=== PATIENT | female | born 1990 | race Caucasian/White ===

== ENCOUNTER → 2017-05-18 | Outpatient (CLI) | payer OTHER ==
[~2017-05-18] MED LIST: AMITRIPTYLINE10 MG PO; AMOXICILLIN500 MG PO; ANAPROX DS550 MG PO; ATARAX25 MG PO; ATOXIMETIN-B1 CAP PO; AUGMENTIN 875 M1 TAB PO; BACTRIM DS 8001 TA1 PO; CIPROFLOXACIN500 MG PO; CLARITIN10 MG PO; CLINDAMYCIN HC300 MG PO; DIFLUCAN150 MG PO; DONNATAL1 TAB PO; DOXYCYCLINE MO100 MG PO; FLAGYL500 MG PO; FLONASE 0.05% 121 EA NAS; HURRICAINE MM; HYDROCODONE BIT1 T11 PO; LOMOTIL 0.025 M1 TA1 PO; MEDROL DOSEPAK4 MG PO; METHERGINE0.2 MG PO; MOBIC15 MG PO; MOTRIN600 MG PO; MOTRIN800 MG PO; NAPROSYN500 MG PO; NKHM; PEN-VK500 MG PO; PERCOCET 325 MG1 TA2 PO; PERCOCET 325 MG1 TA3 PO; PHENERGAN W/ DE30 ML PO; PREDNICOT10 MG PO; PREDNICOT20 MG PO; PREDNISONE20 MG PO; PRENATAL1 TA1 PO; PRENATAL1 TA5 PO; PYRIDIUM200 MG PO; Percocet 325 MG1 TAB PO; REMERON15 M1 PO; ROBITUSSIN-AC 160 ML PO; SEPTRA DS 800 M1 TAB PO; TESSALON PERLE200 MG PO; TRAMADOL HCL50 MG PO; TRAMADOL50 MG PO; ULTRAM50 MG PO; VICODIN 5/500 505 MG PO; ZOFRAN ODT4 MG SL; ZOLOFT50 MG PO; Zofran4 MG PO; [UNRECOGNIZED DRUG - REMARK]
== END | disposition home or self-care (01) ==
LOC: ORTHO 01:27
DX: M25.511 Pain in right shoulder (principal)

== ENCOUNTER 2017-06-01 18:11 | Emergency (ER) | payer OTHER ==
[~2017-06-01] VITALS: Ht 170.1 cm; Wt 59.0 kg
[2017-06-01 18:35] VITALS: BP 110/80
[2017-06-01] MEDS ORDERED: CLARITIN10 MG PO (18:47)
[2017-06-01] MEDS ORDERED: ALLERGY RELIE15.8 ML NAS (18:47)
== END 2017-06-01 18:55 | disposition home or self-care (01) ==
LOC: ED 18:11
DX: J30.2 Other seasonal allergic rhinitis (principal); Z79.899 Other long term (current) drug therapy

== ENCOUNTER 2017-06-04 19:37 | Emergency (ER) | payer OTHER ==
[~2017-06-04] VITALS: Ht 172.7 cm; Wt 63.5 kg
[~2017-06-04 19:37] MED LIST changes: +ALLERGY RELIE15.8 ML NAS
[2017-06-04 19:42] VITALS: BP 117/44
[2017-06-04] MEDS ORDERED: ZOFRAN ODT4 MG SL (20:06)
== END 2017-06-04 20:10 | disposition home or self-care (01) ==
LOC: ED 19:37
DX: K52.9 Noninfective gastroenteritis and colitis, unspecified (principal); Z90.49 Acquired absence of other specified parts of digestive tract; Z79.899 Other long term (current) drug therapy

== ENCOUNTER 2017-08-03 10:30 | Emergency (ER) | payer OTHER ==
[~2017-08-03] VITALS: Ht 170.1 cm; Wt 61.2 kg
[2017-08-03 10:50] VITALS: BP 118/74
[2017-08-03] MEDS ORDERED: PREDNISONE10 MG PO (11:36)
[2017-08-03] MEDS ORDERED: FLONASE ALLERG9.9 ML NAS (11:36)
[2017-08-03] MEDS ORDERED: ROBITUSSIN DM 105 ML PO (11:36)
== END 2017-08-03 12:01 | disposition home or self-care (01) ==
LOC: ED 10:30
DX: J01.90 Acute sinusitis, unspecified (principal); Z79.899 Other long term (current) drug therapy

== ENCOUNTER → 2017-09-28 | Outpatient (CLI) | payer OTHER ==
[~2017-09-28] MED LIST changes: +FLONASE ALLERG9.9 ML NAS; +PREDNISONE10 MG PO; +ROBITUSSIN DM 105 ML PO
== END | disposition home or self-care (01) ==
LOC: LAB 08:13
DX: Z34.83 Encounter for supervision of other normal pregnancy, third trimester (principal); Z3A.28 28 weeks gestation of pregnancy

== ENCOUNTER 2017-12-01 18:02 | Emergency (ER) | payer OTHER ==
[~2017-12-01] VITALS: Ht 170.1 cm; Wt 79.4 kg
[2017-12-01 18:06] VITALS: BP 118/65
== END 2017-12-01 19:05 | disposition home or self-care (01) ==
LOC: ED 18:02
DX: O98.513 Other viral diseases complicating pregnancy, third trimester (principal); R05 Cough; R09.81 Nasal congestion; Z3A.38 38 weeks gestation of pregnancy; Z79.899 Other long term (current) drug therapy; Z90.49 Acquired absence of other specified parts of digestive tract

== ENCOUNTER 2017-12-30 17:39 | Emergency (ER) | payer OTHER ==
[~2017-12-30] VITALS: Ht 170.1 cm; Wt 72.6 kg
[2017-12-30 17:42] VITALS: BP 138/80
[2017-12-30] MEDS ORDERED: PENICILLIN-VK500 MG PO (17:44)
== END 2017-12-30 18:30 | disposition home or self-care (01) ==
LOC: ED 17:39
DX: O90.89 Other complications of the puerperium, not elsewhere classified (principal); K08.89 Other specified disorders of teeth and supporting structures; Z79.899 Other long term (current) drug therapy

== ENCOUNTER 2018-04-30 13:51 | Emergency (ER) | payer OTHER ==
[~2018-04-30] VITALS: Ht 170.1 cm; Wt 68.0 kg
[~2018-04-30 13:51] MED LIST changes: +PENICILLIN-VK500 MG PO
[2018-04-30 13:53] VITALS: BP 109/61
[2018-04-30] MEDS ORDERED: PREDNISONE50 MG PO (14:49)
[2018-04-30] MEDS ORDERED: NAPROSYN500 MG PO (14:49)
[2018-04-30] MEDS ORDERED: ACYCLOVIR200 MG PO (14:49)
== END 2018-04-30 15:05 | disposition home or self-care (01) ==
LOC: ED 13:51
DX: B02.9 Zoster without complications (principal); Z79.899 Other long term (current) drug therapy; Z90.49 Acquired absence of other specified parts of digestive tract

== ENCOUNTER 2019-04-27 15:25 | Emergency (ER) | payer OTHER ==
[~2019-04-27] VITALS: Ht 170.1 cm; Wt 59.0 kg
[~2019-04-27 15:25] MED LIST changes: +ACYCLOVIR200 MG PO; +PREDNISONE50 MG PO
[2019-04-27 15:45] LABS: BASO % 0.3 % (0.0-1.0); EOS # 0.1 10*3/uL (0.0-0.4); EOS % 0.5 % (1.0-4.0); HEMATOCRIT 35.5 % (37.0-47.0); LYMPH # 2.7 10*3/uL (1.3-4.4); LYMPH % 22.4 % (27.0-41.0); MEAN CELL VOLUME 93.4 fl (81.0-99.0); MEAN CORPUSCULAR HGB 31.6 pg (27.0-31.0); MEAN CORPUSCULAR HGB CONC 33.8 g/dl (33.0-37.0); MEAN PLATELET VOLUME 10.3 fl (9.6-12.3); MONO # 0.6 10*3/uL (0.1-1.0); NEUT # 8.7 10*3/uL (2.3-7.9); NEUT % 71.5 % (47.0-73.0); PLATELET COUNT AUTOMATED 209 10*3/uL (130-400); RED CELL DISTRI WIDTH 12.4 % (0-14.5); WHITE BLOOD COUNT 12.2 10*3/uL (4.8-10.8)
[2019-04-27 16:14] LABS: ALBUMIN 3.8 gm/dl (3.1-4.5); ALKALINE PHOSPHATASE 89 U/L (45-117); BUN 10 mg/dl (7-24); CHLORIDE 104 mmol/L (98-107); CREATININE 0.59 mg/dL (0.55-1.02); POTASSIUM 3.9 mmol/L (3.5-5.1); SGOT/AST 19 IU/L (3-35); SGPT/ALT 29 U/L (12-78); SODIUM 139 mmol/L (136-145); TOTAL PROTEIN 6.9 gm/dL (6.4-8.2)
[2019-04-27 16:34] LABS: INTERNATIONAL NORM RATIO 0.9 (2.0-3.5)
[2019-04-27 16:55] LABS: BILIRUBIN NEGATIVE (NEGATIVE); BLOOD 3+ (NEGATIVE); CLARITY TURBID (CLEAR); COLOR RED (YELLOW); GLUCOSE TRACE (NEGATIVE); KETONE TRACE (NEGATIVE); LEUKO ESTERASE TRACE (NEGATIVE); NITRITE POSITIVE (NEGATIVE); PH 7.5 (5.0-9.0); SPECIFIC GRAVITY 1.025 (1.005-1.030)
[2019-04-27 17:02] LABS: RBC TNTC rbc/hpf (0-2)
[2019-04-27 17:03] LABS: BACTERIA TRACE
[2019-04-27 17:35] LABS: HEMATOCRIT 30.1 % (37.0-47.0)
[2019-04-27 18:04] VITALS: BP 113/51
== END 2019-04-27 18:25 | disposition short-term general hospital (02) ==
LOC: ED 15:25
PROVIDERS: Nurse Practitioner Family
DX: O20.9 Hemorrhage in early pregnancy, unspecified (principal); Z3A.00 Weeks of gestation of pregnancy not specified; Z79.899 Other long term (current) drug therapy; Z90.49 Acquired absence of other specified parts of digestive tract; Z98.51 Tubal ligation status

== ENCOUNTER 2020-06-29 12:52 | Emergency (ER) | payer OTHER ==
[~2020-06-29] VITALS: Ht 170.1 cm; Wt 59.0 kg
[2020-06-29 13:01] VITALS: BP 114/89
[2020-06-29] MEDS ORDERED: METHOCARBAMOL500 M1 PO (15:01)
[2020-06-29] MEDS ORDERED: NAPROSYN500 MG PO (15:01)
== END 2020-06-29 15:11 | disposition home or self-care (01) ==
LOC: ED 12:52
DX: S46.911A Strain of unspecified muscle, fascia and tendon at shoulder and upper arm level, right arm, initial encounter (principal); Z79.899 Other long term (current) drug therapy; X58.XXXA Exposure to other specified factors, initial encounter; Y93.89 Activity, other specified; Y92.89 Other specified places as the place of occurrence of the external cause; Y99.8 Other external cause status

== ENCOUNTER 2020-10-31 17:59 | Emergency (ER) | payer OTHER ==
[~2020-10-31] VITALS: Ht 170.1 cm; Wt 59.0 kg
[~2020-10-31 17:59] MED LIST changes: +METHOCARBAMOL500 M1 PO
[2020-10-31 18:10] VITALS: BP 121/76
== END 2020-10-31 18:53 | disposition home or self-care (01) ==
LOC: ED 17:59
DX: J06.9 Acute upper respiratory infection, unspecified (principal); Z20.822 Contact with and (suspected) exposure to COVID-19; Z79.899 Other long term (current) drug therapy; Z79.2 Long term (current) use of antibiotics; Z90.49 Acquired absence of other specified parts of digestive tract

== ENCOUNTER 2020-12-26 16:51 | Emergency (ER) | payer OTHER ==
[~2020-12-26] VITALS: Ht 170.1 cm; Wt 59.0 kg
[2020-12-26 17:01] VITALS: BP 116/77
[2020-12-26 17:52] LABS: BASO % 0.3 % (0.0-1.0); EOS # 0.1 10*3/uL (0.0-0.4); EOS % 0.7 % (1.0-4.0); HEMATOCRIT 41.2 % (37.0-47.0); LYMPH # 3.4 10*3/uL (1.3-4.4); LYMPH % 29.4 % (27.0-41.0); MEAN CORPUSCULAR HGB 31.3 pg (27.0-31.0); MEAN PLATELET VOLUME 11.3 fl (9.6-12.3); MONO # 0.8 10*3/uL (0.1-1.0); MONO % 7.3 % (3.0-9.0); NEUT # 7.2 10*3/uL (2.3-7.9); PLATELET COUNT AUTOMATED 219 10*3/uL (130-400); RED BLOOD COUNT 4.48 10*6/uL (4.10-5.10); WHITE BLOOD COUNT 11.5 10*3/uL (4.8-10.8)
[2020-12-26 18:06] LABS: ALBUMIN 4.1 gm/dl (3.1-4.5); ALKALINE PHOSPHATASE 77 U/L (45-117); BUN 9 mg/dl (7-24); CHLORIDE 106 mmol/L (98-107); CREATININE 0.87 mg/dL (0.55-1.02); POTASSIUM 3.4 mmol/L (3.5-5.1); SGOT/AST 18 IU/L (3-35); SGPT/ALT 36 U/L (12-78); SODIUM 138 mmol/L (136-145); TOTAL PROTEIN 7.1 gm/dL (6.4-8.2)
[2020-12-26 18:06] LABS: BILIRUBIN 1+ (Negative); BLOOD 2+ (Negative); CLARITY Turbid (Clear); COLOR Red (Yellow); GLUCOSE Negative (Negative); KETONE Negative (Negative); LEUKO ESTERASE 3+ (Negative); NITRITE Positive (Negative); UROBILINOGEN 0.2 E.U./dl (0.0-1.0)
[2020-12-26 18:09] LABS: BETA-HCG, QUANT < 1.0 mIU/mL (1-3)
[2020-12-26 18:14] LABS: RBC TNTC rbc/hpf (0-2)
[2020-12-26] MEDS ORDERED: CEPHALEXIN500 M1 PO (19:00)
== END 2020-12-26 19:01 | disposition home or self-care (01) ==
LOC: ED 16:51
PROVIDERS: Student in an Organized Health Care Education/Training Program
DX: N39.0 Urinary tract infection, site not specified (principal); N93.8 Other specified abnormal uterine and vaginal bleeding; Z79.899 Other long term (current) drug therapy; Z79.2 Long term (current) use of antibiotics; Z90.49 Acquired absence of other specified parts of digestive tract

== ENCOUNTER 2021-01-09 11:45 | Emergency (ER) | payer OTHER ==
[~2021-01-09] VITALS: Wt 59.0 kg
[~2021-01-09 11:45] MED LIST changes: +CEPHALEXIN500 M1 PO
[2021-01-09 11:57] VITALS: BP 103/57
[2021-01-09 12:22] LABS: BASO % 0.3 % (0.0-1.0); EOS # 0.1 10*3/uL (0.0-0.4); EOS % 0.8 % (1.0-4.0); HEMATOCRIT 41.5 % (37.0-47.0); LYMPH # 1.3 10*3/uL (1.3-4.4); LYMPH % 11.3 % (27.0-41.0); MEAN CELL VOLUME 93.9 fl (81.0-99.0); MEAN CORPUSCULAR HGB 30.8 pg (27.0-31.0); MEAN CORPUSCULAR HGB CONC 32.8 g/dl (33.0-37.0); MEAN PLATELET VOLUME 11.2 fl (9.6-12.3); MONO # 0.7 10*3/uL (0.1-1.0); MONO % 6.4 % (3.0-9.0); NEUT # 9.4 10*3/uL (2.3-7.9); NEUT % 80.8 % (47.0-73.0); PLATELET COUNT AUTOMATED 183 10*3/uL (130-400); RED BLOOD COUNT 4.42 10*6/uL (4.10-5.10); RED CELL DISTRI WIDTH 12.1 % (0-14.5); WHITE BLOOD COUNT 11.6 10*3/uL (4.8-10.8)
[2021-01-09 12:36] LABS: ALBUMIN 3.6 gm/dl (3.1-4.5); ALKALINE PHOSPHATASE 80 U/L (45-117); BUN 9 mg/dl (7-24); CHLORIDE 110 mmol/L (98-107); CREATININE 0.68 mg/dL (0.55-1.02); SGOT/AST 16 IU/L (3-35); SGPT/ALT 30 U/L (12-78); SODIUM 139 mmol/L (136-145); TOTAL PROTEIN 6.8 gm/dL (6.4-8.2)
[2021-01-09 12:51] LABS: BILIRUBIN Negative (Negative); BLOOD Negative (Negative); CLARITY Cloudy (Clear); COLOR Yellow (Yellow); GLUCOSE Negative (Negative); KETONE Negative (Negative); LEUKO ESTERASE Trace (Negative); NITRITE Negative (Negative)
[2021-01-09 12:56] LABS: PH 8.5 (4.5-8.0)
[2021-01-09 13:09] LABS: CALCIUM OXALATE CRYSTALS 2+; EPITHELIAL CELLS 21-30
[2021-01-09] MEDS ORDERED: FLONASE ALLERG9.9 ML NAS (13:26)
[2021-01-09] MEDS ORDERED: ALLEGRA ALLERG180 M2 PO (13:26)
== END 2021-01-09 13:41 | disposition home or self-care (01) ==
LOC: ED 11:45
PROVIDERS: Student in an Organized Health Care Education/Training Program
DX: J32.9 Chronic sinusitis, unspecified (principal); Z20.822 Contact with and (suspected) exposure to COVID-19; B97.89 Other viral agents as the cause of diseases classified elsewhere; Z90.49 Acquired absence of other specified parts of digestive tract; Z79.899 Other long term (current) drug therapy

== ENCOUNTER 2022-02-22 13:24 | Emergency (ER) | payer OTHER ==
[~2022-02-22] VITALS: Ht 170.1 cm; Wt 56.7 kg
[~2022-02-22 13:24] MED LIST changes: +ALLEGRA ALLERG180 M2 PO
[2022-02-22 13:31] VITALS: BP 112/61
[2022-02-22] MEDS ORDERED: AMOXICILLIN500 M2 PO (23:15)
== END 2022-02-22 14:34 | disposition left against medical advice (07) ==
LOC: ED 13:24
DX: R06.02 Shortness of breath (principal); R51.9 Headache, unspecified; H92.01 Otalgia, right ear; Z53.21 Procedure and treatment not carried out due to patient leaving prior to being seen by health care provider

== ENCOUNTER 2022-02-22 20:54 | Emergency (ER) | payer OTHER ==
[~2022-02-22] VITALS: Ht 170.1 cm; Wt 56.7 kg
[2022-02-22] MEDS ORDERED: AMOXICILLIN500 M2 PO (23:15)
== END 2022-02-22 23:23 | disposition home or self-care (01) ==
LOC: ED 20:54
DX: J02.9 Acute pharyngitis, unspecified (principal); Z90.49 Acquired absence of other specified parts of digestive tract

== ENCOUNTER → 2022-10-30 | Outpatient (CLI) | payer OTHER ==
[~2022-10-30] MED LIST changes: +AMOXICILLIN500 M2 PO
[2022-10-30 10:56] LABS: ALKALINE PHOSPHATASE 77 U/L (46-116); BUN 12 mg/dl (9-23); CHLORIDE 108 mmol/L (98-107); POTASSIUM 4.2 mmol/L (3.4-5.1); SGPT/ALT 27 U/L (10-49); TOTAL PROTEIN 6.8 gm/dL (6.0-8.0)
[2022-10-31 06:07] LABS: HBSAG Negative (Negative); HEP B CORE AB, IGM Negative (Negative); HEPATITIS C ANTIBODY Non Reactive (Non Reactive)
== END | disposition home or self-care (01) ==
LOC: LAB 09:50
PROVIDERS: ATTEND Nurse Practitioner Family
DX: F11.20 Opioid dependence, uncomplicated (principal)

== ENCOUNTER 2022-11-03 21:12 | Emergency (ER) | payer OTHER ==
[~2022-11-03] VITALS: Ht 170.1 cm; Wt 59.0 kg
[2022-11-03 21:15] VITALS: BP 116/54
[2022-11-03 21:49] LABS: BASO # 0.1 10*3/uL (0.0-0.1); BASO % 0.4 % (0.0-1.0); EOS # 0.1 10*3/uL (0.0-0.4); EOS % 0.4 % (1.0-4.0); HEMATOCRIT 40.4 % (37.0-47.0); LYMPH # 0.9 10*3/uL (1.3-4.4); LYMPH % 5.1 % (27.0-41.0); MEAN CORPUSCULAR HGB 31.2 pg (27.0-31.0); MEAN CORPUSCULAR HGB CONC 33.9 g/dl (33.0-37.0); MEAN PLATELET VOLUME 10.3 fl (9.6-12.3); MONO # 0.7 10*3/uL (0.1-1.0); MONO % 4.4 % (3.0-9.0); NEUT % 89.2 % (47.0-73.0); PLATELET COUNT AUTOMATED 216 10*3/uL (130-400); RED BLOOD COUNT 4.39 10*6/uL (4.10-5.10); RED CELL DISTRI WIDTH 11.9 % (0-14.5); WHITE BLOOD COUNT 16.7 10*3/uL (4.8-10.8)
[2022-11-03 22:06] LABS: ALKALINE PHOSPHATASE 72 U/L (46-116); BUN 9 mg/dl (9-23); CHLORIDE 106 mmol/L (98-107); LIPASE 37 U/L (12-53); POTASSIUM 3.5 mmol/L (3.4-5.1); SGPT/ALT 21 U/L (10-49); TOTAL PROTEIN 6.5 gm/dL (6.0-8.0)
[2022-11-03] MEDS ORDERED: ONDANSETRON4 MG SL (22:58)
[2022-11-03 23:02] LABS: BILIRUBIN Negative (Negative); BLOOD Negative (Negative); CLARITY Clear (Clear); COLOR Yellow (Yellow); GLUCOSE Negative (Negative); KETONE 3+ (Negative); LEUKO ESTERASE Trace (Negative); NITRITE Negative (Negative); PH 5.5 (4.5-8.0); SPECIFIC GRAVITY 1.025 (1.001-1.030)
[2022-11-03 23:21] LABS: BACTERIA 1+; MUCOUS 2+
== END 2022-11-03 23:48 | disposition home or self-care (01) ==
LOC: ED 21:12
PROVIDERS: Nurse Practitioner Family
DX: R11.2 Nausea with vomiting, unspecified (principal); Z90.49 Acquired absence of other specified parts of digestive tract; F17.200 Nicotine dependence, unspecified, uncomplicated

== ENCOUNTER 2024-07-05 11:30 | Emergency (ER) | payer OTHER ==
[~2024-07-05] VITALS: Ht 170.1 cm; Wt 59.0 kg
[~2024-07-05 11:30] MED LIST changes: +ONDANSETRON4 MG SL
[2024-07-05 11:38] VITALS: BP 137/90
[2024-07-05] MEDS ORDERED: SODIUM CHLORIDE 0.9% 500 ML IV ONE ×2 (11:55)
[2024-07-05 12:23] LABS: BASO % 0.5 % (0.0-1.0); EOS # 0.1 10*3/uL (0.0-0.4); EOS % 1.1 % (1.0-4.0); HEMATOCRIT 40.7 % (37.0-47.0); MEAN CELL VOLUME 91.5 fl (81.0-99.0); MEAN CORPUSCULAR HGB CONC 33.9 g/dl (33.0-37.0); MEAN PLATELET VOLUME 10.3 fl (9.6-12.3); MONO # 0.4 10*3/uL (0.1-1.0); MONO % 4.7 % (3.0-9.0); NEUT # 6.3 10*3/uL (2.3-7.9); NEUT % 71.3 % (47.0-73.0); PLATELET COUNT AUTOMATED 218 10*3/uL (130-400); RED BLOOD COUNT 4.45 10*6/uL (4.10-5.10); RED CELL DISTRI WIDTH 11.9 % (0-14.5); WHITE BLOOD COUNT 8.9 10*3/uL (4.8-10.8)
[2024-07-05 12:46] LABS: BUN 6 mg/dl (9-23); CHLORIDE 109 mmol/L (98-107); POTASSIUM 3.9 mmol/L (3.4-5.1)
[2024-07-05] MEDS ORDERED: predniSONE 20 MG TAB PO ONE (13:25)
[2024-07-05] MEDS ORDERED: AZITHROMYCIN 250 MG TAB PO ONE (13:25)
[2024-07-05] MEDS ORDERED: ZITHROMAX250 MG PO (13:27)
[2024-07-05] MEDS ORDERED: PREDNISONE50 MG PO (13:27)
== END 2024-07-05 13:40 | disposition home or self-care (01) ==
LOC: ED 11:30
PROVIDERS: Nurse Practitioner Family
DX: J98.4 Other disorders of lung (principal); Z20.822 Contact with and (suspected) exposure to COVID-19; R53.1 Weakness; R53.83 Other fatigue; Z90.49 Acquired absence of other specified parts of digestive tract; Z87.891 Personal history of nicotine dependence

== ENCOUNTER 2025-05-19 09:15 | Emergency (ER) | payer OTHER ==
[~2025-05-19] VITALS: Ht 170.1 cm; Wt 54.4 kg
[~2025-05-19 09:15] MED LIST changes: +ZITHROMAX250 MG PO
[2025-05-19 09:27] VITALS: BP 123/66
[2025-05-19] MEDS ORDERED: SODIUM CHLORIDE 0.9% 1,000 ML IV ONE (09:35)
[2025-05-19] MEDS ORDERED: Ondansetron Hydrochloride 4 MG/2 ML VIAL IV ONE (09:40)
[2025-05-19 09:55] LABS: BASO # 0.0 10*3/uL (0.0-0.1); BASO % 0.6 % (0.0-1.0); EOS # 0.1 10*3/uL (0.0-0.4); EOS % 1.1 % (1.0-4.0); MEAN CELL VOLUME 94.0 fl (81.0-99.0); MEAN CORPUSCULAR HGB 31.3 pg (27.0-31.0); MEAN PLATELET VOLUME 9.7 fl (9.6-12.3); MONO # 0.4 10*3/uL (0.1-1.0); MONO % 6.0 % (3.0-9.0); NEUT # 4.5 10*3/uL (2.3-7.9); NEUT % 64.6 % (47.0-73.0); NUCLEATED RED BLOOD CELL 0.0 % (0.0-0.0); NUCLEATED RED BLOOD CELL 0.0 10*3/uL (0.0-0.0); PLATELET COUNT AUTOMATED 209 10*3/uL (130-400); RED CELL DISTRI WIDTH 11.9 % (0-14.5)
[2025-05-19 10:26] LABS: BUN 11 mg/dl (9-23); SGPT/ALT 40 U/L (5-49)
[2025-05-19 10:51] LABS: BILIRUBIN Negative (Negative); BLOOD Negative (Negative); CLARITY Cloudy (Clear); COLOR Yellow (Yellow); KETONE Trace (Negative); LEUKO ESTERASE Negative (Negative); NITRITE Negative (Negative); PH 8.0 (4.5-8.0); SPECIFIC GRAVITY 1.025 (1.001-1.030); UROBILINOGEN 1.0 E.U./dl (0.0-1.0)
[2025-05-19 11:02] LABS: BACTERIA 1+; EPITHELIAL CELLS 0-2; RBC 0-2 rbc/hpf (0-2); WBC 0-2 wbc/hpf (0-5)
== END 2025-05-19 12:28 | disposition home or self-care (01) ==
LOC: ED 09:15
PROVIDERS: Emergency Medicine
DX: K59.00 Constipation, unspecified (principal); R35.0 Frequency of micturition; Z90.49 Acquired absence of other specified parts of digestive tract; Z79.899 Other long term (current) drug therapy